=== PATIENT | male | born 1935 | race Caucasian/White ===

== ENCOUNTER → 2016-07-13 | Outpatient (CLI) | payer OTHER ==
[2016-07-13 13:37] LABS: ALT/SGPT 12 U/L (12-78); AST/SGOT 10 U/L (15-37); BLOOD UREA NITROGEN 19 mg/dl (7-18); BUN/CREATININE RATIO 19.1 (10-20); CALCIUM 8.8 mg/dl (8.5-10.1); CARBON DIOXIDE 27 mmol/L (21-32); CHLORIDE 105 mmol/L (98-107); CREATININE 0.98 mg/dl (0.60-1.40); GLUCOSE 141 mg/dl (70-99); POTASSIUM 3.8 mmol/L (3.5-5.1); SODIUM 141 mmol/L (136-145)
[2016-07-13 13:41] LABS: ESTIMATED AVERAGE GLUCOSE 160 mg/dl; HA1C FLAG Normal (Normal)
[2016-07-13 13:47] LABS: RATIO 81.2 mcg/mg (0-30.0)
== END | disposition home or self-care (01) ==
LOC: C.LABMFLN 09:32
PROVIDERS: ATTEND Family Medicine
DX: E11.49 Type 2 diabetes mellitus with other diabetic neurological complication (principal); I10 Essential (primary) hypertension; E78.5 Hyperlipidemia, unspecified

== ENCOUNTER → 2016-09-27 | Outpatient (CLI) | payer OTHER ==
[2016-09-27 14:31] LABS: ALT/SGPT 16 U/L (12-78); AST/SGOT 9 U/L (15-37); BLOOD UREA NITROGEN 18 mg/dl (7-18); BUN/CREATININE RATIO 20.4 (10-20); CALCIUM 8.9 mg/dl (8.5-10.1); CARBON DIOXIDE 34 mmol/L (21-32); CHLORIDE 106 mmol/L (98-107); GLUCOSE 153 mg/dl (70-99); POTASSIUM 4.3 mmol/L (3.5-5.1); SODIUM 141 mmol/L (136-145)
[2016-09-27 14:36] LABS: ALB/GLOB RATIO 1.1 (0.9-2); ALKALINE PHOSPHATASE 59 U/L (45-117); CHOLESTEROL 112 mg/dl (0-200); CHOLESTEROL/HDL RATIO 2.7; HDL CHOLESTEROL 41 mg/dl; LDL CHOLESTEROL CALCULATED 57 mg/dl; TRIGLYCERIDES 71 mg/dl (0-150); VERY LOW DENSITY LIPOPROT CALC 14 mg/dl
== END | disposition home or self-care (01) ==
LOC: C.LABMFLN 09:21
PROVIDERS: ATTEND Family Medicine
DX: I10 Essential (primary) hypertension (principal); E78.5 Hyperlipidemia, unspecified; E11.49 Type 2 diabetes mellitus with other diabetic neurological complication

== ENCOUNTER → 2016-12-28 | Outpatient (CLI) | payer OTHER ==
[2016-12-28 17:59] LABS: BASO % 0.3 %; BASO ABS # 0.02 K/uL (0-0.2); COMPLETE YES; EOS % 0.8 %; HEMATOCRIT 38.5 % (42-52); IG% 0.1 %; LYMPH % 18.5 %; LYMPH ABS # 1.38 K/uL (1.2-3.4); MEAN CELL VOLUME 96.5 fL (80-100); MEAN CORPUSCULAR HEMOGLOBIN 31.3 pg (25-34); MEAN CORPUSCULAR HGB CONC 32.5 g/dl (32-36); MEAN PLATELET VOLUME 10.4 fL (7.4-10.4); MONO % 8.6 %; NEUT % 71.7 %; PLATELET COUNT 284 K/uL (130-400); RED BLOOD COUNT 3.99 M/uL (4.7-6.1); WHITE BLOOD COUNT 7.45 K/uL (4.8-10.8)
[2016-12-28 18:01] LABS: BLOOD UREA NITROGEN 23 mg/dl (7-18); BUN/CREATININE RATIO 26.6 (10-20); CALCIUM 9.3 mg/dl (8.5-10.1); CARBON DIOXIDE 31 mmol/L (21-32); CHLORIDE 105 mmol/L (98-107); CREATININE 0.85 mg/dl (0.60-1.40); GLUCOSE 132 mg/dl (70-99); POTASSIUM 3.9 mmol/L (3.5-5.1); SODIUM 139 mmol/L (136-145)
[2016-12-29 06:35] LABS: ESTIMATED AVERAGE GLUCOSE 154 mg/dl; HA1C FLAG Normal (Normal)
== END | disposition home or self-care (01) ==
LOC: C.LABMFLN 15:38
PROVIDERS: ATTEND Family Medicine
DX: I10 Essential (primary) hypertension (principal); E78.5 Hyperlipidemia, unspecified; E11.49 Type 2 diabetes mellitus with other diabetic neurological complication; C18.9 Malignant neoplasm of colon, unspecified